=== PATIENT | female | born 1960 | race Caucasian/White ===

== ENCOUNTER → 2020-01-04 14:08 | Outpatient (BNVA) | payer BC, SELFPAY | PROVIDERS: Referring Provider Internal Medicine; Visit Provider Specialist | DX: G43.019 Migraine without aura, intractable, without status migrainosus (principal); F32.9 Major depressive disorder, single episode, unspecified | CPT/HCPCS: 99204 ==

== ENCOUNTER → 2020-02-08 12:42 | Outpatient (BNVA) | payer BC, SELFPAY | PROVIDERS: PCP Internal Medicine; Visit Provider Specialist | DX: G43.019 Migraine without aura, intractable, without status migrainosus (principal); Z87.891 Personal history of nicotine dependence | CPT/HCPCS: 99213 ==

== ENCOUNTER → 2021-04-21 12:38 | Outpatient (BNVA) | payer BC, SELFPAY | PROVIDERS: PCP Internal Medicine; Visit Provider Specialist | DX: G43.019 Migraine without aura, intractable, without status migrainosus (principal); Z87.891 Personal history of nicotine dependence | CPT/HCPCS: 99213; 99214 ==